=== PATIENT | female | born 1965 | race Hispanic/Latino ===

== ENCOUNTER 2021-11-22 09:06 | Observation (INO) | payer OTHER ==
[2021-11-17 11:15] LABS: CREATININE 0.7 mg/dL (0.5-1.5); POTASSIUM 3.8 mmol/L (3.5-5.1)
[2021-11-17 11:17] LABS: BASOPHILS % (AUTO) 0.6 % (0.0-5.0); EOSINOPHILS % (AUTO) 2.9 % (0.0-8.0); HEMATOCRIT 41.1 % (36-48); LYMPHOCYTES % (AUTO) 33.7 % (21.0-51.0); MEAN CORPUSCULAR HEMOGLOBIN 29.6 pg (27.0-33.0); MEAN CORPUSCULAR HGB CONC 31.9 g/dL (32.0-36.0); MEAN CORPUSCULAR VOLUME 92.8 fL (79-99); MONOCYTES % (AUTO) 5.5 % (3.0-13.0); NEUTROPHILS % (AUTO) 57.1 % (40.0-77.0); PLATELET COUNT (AUTO) 215 K/uL (130-400); RED BLOOD CELL COUNT(AUTO) 4.43 MIL/uL (4.00-5.50); RED CELL DISTRIBUTION WIDTH 13.3 % (11.0-15.5); WHITE BLOOD COUNT (AUTO) 8.5 K/uL (4.8-10.8)
[2021-11-17 12:01] LABS: INR 0.93 (0.85-1.15); PROTHROMBIN TIME 9.7 SEC (9.6-11.6)
[2021-11-17 12:03] LABS: PARTIAL THROMBOPLASTIN TIME 25.5 SEC (26.3-35.5)
[2021-11-21 10:14] VITALS: BP 178/94
[~2021-11-22] VITALS: Ht 154.9 cm; Wt 87.2 kg
[2021-11-22] VITALS (24 sets, daily range): BP systolic 110–138; BP diastolic 58–76
[2021-11-22] MEDS: CEFAZOLIN SODIUM 2 GM VIAL IV SCH ×2 (05:00→14:15)
[~2021-11-22 09:06] MED LIST: METF-444 PO; ROPIVICAINE 250MG+KETOROLAC 15MG+EPINEPHRINE 0.3+CLONIDINE 80 IV PRN
[2021-11-22] MEDS ORDERED: 0.9%NACL 1000ML 1,000 ML IV ONE (10:18)
[2021-11-22] MEDS ORDERED: POTASSIUM CHLORIDE 20MEQ/100ML 100 ML IV PRN (12:30)
[2021-11-22] MEDS ORDERED: POTASSIUM CHLORIDE 10% ELIXIR 20 MEQ/15 ML UDCUP PO PRN (12:30)
[2021-11-22] MEDS ORDERED: HYDROCODONE/ACETAMINOPHEN 5/325 MG TAB PO PRN (12:30)
[2021-11-22] MEDS: ACETAMINOPHEN 500 MG TABLET PO SCH ×2 (12:30→22:50)
[2021-11-22] MEDS ORDERED: LIDOCAINE HCL-MPF 1% 2ML VIAL IV PRN (12:30)
[2021-11-22] MEDS ORDERED: TRANEXAMIC ACID 1000MG/10ML ONE (13:02)
[2021-11-22] MEDS ORDERED: SUCCINYLCHOLINE CHLORIDE 20 MG/ML 10 ML VIAL ONE (13:45)
[2021-11-22] MEDS ORDERED: SUCCINYLCHOLINE 200MG/10ML SYR ONE (13:45)
[2021-11-22] MEDS ORDERED: LIDOCAINE PF 100MG/5ML (2%) SYRINGE 5ML ONE (13:45)
[2021-11-22] MEDS ORDERED: PROPOFOL 10 MG/ML 20ML VIAL IV ONE (13:46)
[2021-11-22] MEDS ORDERED: ROCURONIUM 10MG/1ML SYR 10 MG/ML ML ONE (13:46)
[2021-11-22] MEDS ORDERED: ONDANSETRON 4MG INJ ONE (13:46)
[2021-11-22] MEDS ORDERED: NEOSTIGMINE 5MG/5ML SYR IV ONE (13:46)
[2021-11-22] MEDS ORDERED: GLYCOPYRROLATE 1 MG/5 ML SYRINGE ONE (13:46)
[2021-11-22] MEDS ORDERED: MIDAZOLAM HCL 1 MG/ML 2ML VIAL ONE (13:46)
[2021-11-22] MEDS ORDERED: DEXAMETHASONE SOD PHOSPHATE 10MG/ML 1ML VIAL ONE (13:46)
[2021-11-22] MEDS ORDERED: FENTANYL CITRATE PF 50 MCG/1 ML 2ML VIAL ONE (13:47)
[2021-11-22] MEDS ORDERED: CEFAZOLIN SODIUM 1 GM VIAL ONE (13:53)
[2021-11-22] MEDS: INSULIN HUMULIN R 100 UNIT/ML 3ML SQ SCH ×2 (16:30→22:57)
[2021-11-22] MEDS ORDERED: MEPERIDINE-PF 25 MG/ML SYG ONE ×2 (16:55→17:21)
[2021-11-22] MEDS ORDERED: KETOROLAC 30MG VIAL (30MG/ML) ONE (16:55)
[2021-11-22] MEDS: METFORMIN HCL 500 MG TABLET PO SCH (17:00)
[2021-11-22] MEDS: ONDANSETRON 4MG INJ IVP PRN (17:02)
[2021-11-22] MEDS ORDERED: CEFAZOLIN SODIUM 1 GM VIAL IVP SCH (17:30)
[2021-11-22] MEDS: TRAMADOL HCL 50 MG TABLET PO SCH (18:28)
[2021-11-22] MEDS: 0.9%NACL 1000ML 1,000 ML IV SCH ×2 (18:28→22:30)
[2021-11-22] MEDS: ASPIRIN 81 MG EC TAB PO SCH (22:49)
[2021-11-22] MEDS: FAMOTIDINE 20MG TAB PO SCH (22:49)
[2021-11-22] MEDS: CEFAZOLIN SODIUM 1 GM VIAL IVP SCH (22:50)
[2021-11-22] MEDS: HYDROCODONE/ACETAMINOPHEN 10/325 MG TAB PO PRN (22:59)
[2021-11-23] MEDS: TRAMADOL HCL 50 MG TABLET PO SCH ×4 (00:57→17:28)
[2021-11-23 01:10] VITALS: BP 101/58
[2021-11-23 03:33] LABS: HEMATOCRIT 34.3 % (36-48); MEAN CORPUSCULAR HEMOGLOBIN 29.5 pg (27.0-33.0); MEAN CORPUSCULAR HGB CONC 31.8 g/dL (32.0-36.0); MEAN CORPUSCULAR VOLUME 92.7 fL (79-99); RED BLOOD CELL COUNT(AUTO) 3.7 MIL/uL (4.00-5.50); RED CELL DISTRIBUTION WIDTH 13.3 % (11.0-15.5)
[2021-11-23 03:43] LABS: CREATININE 0.7 mg/dL (0.5-1.5); POTASSIUM 3.5 mmol/L (3.5-5.1)
[2021-11-23 04:23] VITALS: BP 99/52
[2021-11-23] MEDS: CEFAZOLIN SODIUM 2 GM VIAL IV SCH ×2 (05:00→21:06)
[2021-11-23] MEDS: CEFAZOLIN SODIUM 1 GM VIAL IVP SCH (05:16)
[2021-11-23] MEDS: ACETAMINOPHEN 500 MG TABLET PO SCH ×3 (05:17→21:32)
[2021-11-23] MEDS: INSULIN HUMULIN R 100 UNIT/ML 3ML SQ SCH ×4 (07:30→21:00)
[2021-11-23 08:00] VITALS: BP 101/53
[2021-11-23] MEDS: 0.9%NACL 1000ML 1,000 ML IV SCH (08:30)
[2021-11-23] MEDS: POLYETHYLENE GLYCOL 3350 17 GM POWD.PACK PO SCH (08:46)
[2021-11-23] MEDS: METFORMIN HCL 500 MG TABLET PO SCH ×2 (08:48→17:28)
[2021-11-23] MEDS: ASPIRIN 81 MG EC TAB PO SCH ×2 (08:48→21:31)
[2021-11-23] MEDS: FAMOTIDINE 20MG TAB PO SCH ×2 (08:48→21:31)
[2021-11-23] MEDS: HYDROCODONE/ACETAMINOPHEN 10/325 MG TAB PO PRN (11:56)
[2021-11-23 12:00] VITALS: BP 121/63
[2021-11-23] MEDS: MORPHINE 4 MG SYG IVP PRN (13:20)
[2021-11-23] MEDS: KCL 20 MEQ ERTAB PO PRN ×2 (14:51→17:27)
[2021-11-23] MEDS: KETOROLAC 15MG/ML VIAL (15MG/ML) IV PRN ×2 (15:20→21:31)
[2021-11-23 16:30] VITALS: BP 109/58
[2021-11-23 22:34] VITALS: BP 121/67
[2021-11-24] MEDS: TRAMADOL HCL 50 MG TABLET PO SCH ×4 (00:13→16:54)
[2021-11-24 00:21] VITALS: BP 107/54
[2021-11-24] MEDS: KETOROLAC 15MG/ML VIAL (15MG/ML) IV PRN (04:09)
[2021-11-24] MEDS: ACETAMINOPHEN 500 MG TABLET PO SCH ×2 (04:09→12:06)
[2021-11-24 04:12] VITALS: BP 111/60
[2021-11-24 07:30] VITALS: BP 124/60
[2021-11-24] MEDS: INSULIN HUMULIN R 100 UNIT/ML 3ML SQ SCH ×3 (07:30→16:30)
[2021-11-24] MEDS: METFORMIN HCL 500 MG TABLET PO SCH ×2 (07:46→16:54)
[2021-11-24] MEDS: ASPIRIN 81 MG EC TAB PO SCH (07:46)
[2021-11-24] MEDS: HYDROCODONE/ACETAMINOPHEN 10/325 MG TAB PO PRN (07:46)
[2021-11-24] MEDS: FAMOTIDINE 20MG TAB PO SCH (07:47)
[2021-11-24] MEDS: POLYETHYLENE GLYCOL 3350 17 GM POWD.PACK PO SCH (07:47)
[2021-11-24] MEDS: MORPHINE 4 MG SYG IVP PRN ×2 (09:01→14:03)
[2021-11-24 11:00] VITALS: BP 117/60
[2021-11-24 16:00] VITALS: BP 122/68
[2021-11-24 17:06] VITALS: BP 122/68
[2021-11-24] MEDS: ONDANSETRON 4MG INJ IVP PRN (17:38)
[2021-11-25] MEDS ORDERED: BISACODYL 10 MG SUPP.RECT RC PRN (12:30)
== END 2021-11-24 20:50 | disposition home or self-care (01) ==
LOC: DAH 09:06 → DAHIP 09:07 → DAH 09:07 → 4AH 18:21
PROVIDERS: ADMIT Orthopaedic Surgery; ATTEND Orthopaedic Surgery
DX: M17.11 Unilateral primary osteoarthritis, right knee (principal); Z20.822 Contact with and (suspected) exposure to COVID-19; M79.604 Pain in right leg; E11.9 Type 2 diabetes mellitus without complications; Z79.899 Other long term (current) drug therapy
CPT/HCPCS: 0055T; 27447; 36415; 64447; 76942; 80048; 82948; 85025; 85027; 85610; 85730; 87635; 87641; 93971; 96372; 96374; 96375; 96376; 97039; C9803; G0378; J0171; J0330; J0690; J0735; J1100; J1815; J1885; J2001; J2175; J2250; J2270; J2405; J2704; J2710; J2795; J3010; J3490; J7030

== ENCOUNTER → 2021-12-09 | Outpatient (CLI) | payer OTHER ==
[~2021-12-09] MED LIST changes: -ROPIVICAINE 250MG+KETOROLAC 15MG+EPINEPHRINE 0.3+CLONIDINE 80 IV PRN
== END | disposition home or self-care (01) ==
LOC: RAH 11:15
PROVIDERS: ATTEND Internal Medicine
DX: T84.84XA Pain due to internal orthopedic prosthetic devices, implants and grafts, initial encounter (principal); M77.31 Calcaneal spur, right foot; X58.XXXA Exposure to other specified factors, initial encounter; Y93.89 Activity, other specified; Y92.89 Other specified places as the place of occurrence of the external cause; Y99.8 Other external cause status
CPT/HCPCS: 73552; 73560; 73590; 73600; 73620

== ENCOUNTER 2021-12-21 14:55 | Emergency (ER) | payer OTHER ==
[~2021-12-21] VITALS: Ht 152.4 cm; Wt 84.4 kg
[2021-12-21 16:14] LABS: BASOPHILS % (AUTO) 0.3 % (0.0-5.0); EOSINOPHILS % (AUTO) 3.8 % (0.0-8.0); LYMPHOCYTES % (AUTO) 28.3 % (21.0-51.0); MEAN CORPUSCULAR HEMOGLOBIN 29.8 pg (27.0-33.0); MEAN CORPUSCULAR HGB CONC 31.8 g/dL (32.0-36.0); MEAN CORPUSCULAR VOLUME 93.8 fL (79-99); MONOCYTES % (AUTO) 5.4 % (3.0-13.0); NEUTROPHILS % (AUTO) 61.9 % (40.0-77.0); PLATELET COUNT (AUTO) 284 K/uL (130-400); RED BLOOD CELL COUNT(AUTO) 4.16 MIL/uL (4.00-5.50); RED CELL DISTRIBUTION WIDTH 13.4 % (11.0-15.5); WHITE BLOOD COUNT (AUTO) 11.4 K/uL (4.8-10.8)
[2021-12-21 16:24] LABS: CREATININE 0.8 mg/dL (0.5-1.5); POTASSIUM 3.3 mmol/L (3.5-5.1)
[2021-12-21] MEDS ORDERED: POTASSIUM BICARB/CIT AC 25 MEQ TABLET.EFF PO STA (16:29)
[2021-12-21 16:30] LABS: ALBUMIN 3.7 g/dL (3.5-5.0)
[2021-12-21] MEDS ORDERED: NAPR375T6 PO (17:11)
[2021-12-21 17:27] VITALS: BP 132/74
== END 2021-12-21 17:29 | disposition home or self-care (01) ==
LOC: EDH 14:55
DX: S86.911A Strain of unspecified muscle(s) and tendon(s) at lower leg level, right leg, initial encounter (principal); E11.9 Type 2 diabetes mellitus without complications; Z79.84 Long term (current) use of oral hypoglycemic drugs; Z96.651 Presence of right artificial knee joint; X58.XXXA Exposure to other specified factors, initial encounter; Y93.89 Activity, other specified; Y92.89 Other specified places as the place of occurrence of the external cause; Y99.8 Other external cause status
CPT/HCPCS: 36415; 73562; 80053; 85025; 93971

== ENCOUNTER → 2022-01-10 | Outpatient (CLI) | payer OTHER ==
[~2022-01-10] MED LIST changes: +NAPR375T6 PO
== END | disposition home or self-care (01) ==
LOC: RAH 09:11
PROVIDERS: ATTEND Internal Medicine
DX: I10 Essential (primary) hypertension (principal)
CPT/HCPCS: 71046

== ENCOUNTER 2022-09-13 21:36 | Emergency (ER) | payer OTHER ==
[~2022-09-13] VITALS: Ht 154.9 cm; Wt 92.5 kg
[2022-09-14 00:02] LABS: BASOPHILS % (AUTO) 0.3 % (0.0-5.0); EOSINOPHILS % (AUTO) 2.9 % (0.0-8.0); HEMATOCRIT 40.4 % (36-48); LYMPHOCYTES % (AUTO) 33.1 % (21.0-51.0); MEAN CORPUSCULAR HEMOGLOBIN 29.7 pg (27.0-33.0); MEAN CORPUSCULAR HGB CONC 31.4 g/dL (32.0-36.0); MEAN CORPUSCULAR VOLUME 94.4 fL (79-99); MONOCYTES % (AUTO) 6.3 % (3.0-13.0); PLATELET COUNT (AUTO) 234 K/uL (130-400); RED BLOOD CELL COUNT(AUTO) 4.28 MIL/uL (4.00-5.50); WHITE BLOOD COUNT (AUTO) 12.9 K/uL (4.8-10.8)
[2022-09-14 00:36] LABS: ALBUMIN 4.1 g/dL (3.5-5.0); CREATININE 0.9 mg/dL (0.5-1.5); POTASSIUM 3.7 mmol/L (3.5-5.1); TOTAL PROTEIN, SERUM 8.1 g/dL (6.0-8.3)
[2022-09-14] MEDS ORDERED: ONDANSETRON 4MG INJ ONE (01:13)
[2022-09-14] MEDS ORDERED: KETOROLAC 30MG VIAL (30MG/ML) ONE (01:13)
[2022-09-14] MEDS ORDERED: ONDANSETRON 4MG INJ IVP ONE (01:30)
[2022-09-14] MEDS ORDERED: KETOROLAC 30MG VIAL (30MG/ML) IVP ONE (01:30)
[2022-09-14] MEDS ORDERED: 0.9%NACL 1000ML 1,000 ML IV ONE (01:30)
[2022-09-14 01:33] LABS: APPEARANCE,URINE CLEAR (CLEAR); BILIRUBIN,URINE NEGATIVE (NEGATIVE); COLOR,URINE COLORLESS (YELLOW); GLUCOSE, URINE (UA) NEGATIVE (NEGATIVE); KETONES,URINE NEGATIVE (NEGATIVE); LEUKOCYTE ESTERASE ,URINE NEGATIVE Leu/uL (NEGATIVE); NITRATE,URINE NEGATIVE (NEGATIVE); OCCULT BLOOD,URINE NEGATIVE (NEGATIVE); PROTEIN,URINE NEGATIVE (NEGATIVE); UROBILINOGEN,URINE 0.2 mg/dL (0.2-1.0)
[2022-09-14 04:17] VITALS: BP 148/72
[2022-09-14] MEDS ORDERED: IBUP-1493 PO (04:20)
[2022-09-14] MEDS ORDERED: DICYCLOMINE 20MG (10MG/ML) AMP IM ONE ×2 (04:26→04:30)
== END 2022-09-14 04:51 | disposition home or self-care (01) ==
LOC: EDH 21:36
DX: K43.9 Ventral hernia without obstruction or gangrene (principal); E11.9 Type 2 diabetes mellitus without complications; E78.00 Pure hypercholesterolemia, unspecified; Z79.1 Long term (current) use of non-steroidal anti-inflammatories (NSAID); Z79.84 Long term (current) use of oral hypoglycemic drugs; Z90.49 Acquired absence of other specified parts of digestive tract; Z79.899 Other long term (current) drug therapy; Z90.710 Acquired absence of both cervix and uterus
CPT/HCPCS: 99285; 74176; 84484; 80053; 83690; 85025; 81003; 36415; 93005; 96374; 96361; 96375; 96372; J7030; J2405 ×2; J1885 ×2; J0500

== ENCOUNTER 2023-02-04 21:15 | Emergency (ER) | payer OTHER ==
[~2023-02-04] VITALS: Ht 154.9 cm; Wt 83.0 kg
[~2023-02-04 21:15] MED LIST changes: +AMIT50TA3 PO; +DULO30CA2 PO; +ESCI20TA38 PO; +IBUP-1493 PO
[2023-02-04 21:55] LABS: BASOPHILS # (AUTO) 0.03 K/uL (0.00-0.20); BASOPHILS % (AUTO) 0.3 % (0.0-5.0); EOSINOPHILS # (AUTO) 0.47 K/uL (0.00-0.70); EOSINOPHILS % (AUTO) 5.2 % (0.0-8.0); HEMATOCRIT 37.9 % (36-48); IMMATURE GRANULOCYTE ABSOLUTE 0.04 K/uL (0-1); LYMPHOCYTES # (AUTO) 3.2 K/uL (1.0-4.8); LYMPHOCYTES % (AUTO) 35.4 % (21.0-51.0); MEAN CORPUSCULAR HEMOGLOBIN 30.2 pg (27.0-33.0); MEAN CORPUSCULAR HGB CONC 32.7 g/dL (32.0-36.0); MEAN CORPUSCULAR VOLUME 92.2 fL (79-99); MONOCYTES # (AUTO) 0.7 K/uL (0.1-1.0); MONOCYTES % (AUTO) 7.5 % (3.0-13.0); NEUTROPHILS # (AUTO) 4.6 K/uL (1.8-7.7); NEUTROPHILS % (AUTO) 51.2 % (40.0-77.0); PLATELET COUNT (AUTO) 207 K/uL (130-400); RED BLOOD CELL COUNT(AUTO) 4.11 MIL/uL (4.00-5.50); RED CELL DISTRIBUTION WIDTH 13.2 % (11.0-15.5)
[2023-02-04 22:04] LABS: CREATININE 0.8 mg/dL (0.5-1.5); POTASSIUM 3.7 mmol/L (3.5-5.1)
[2023-02-04 22:08] LABS: ALBUMIN 3.7 g/dL (3.5-5.0); BILIRUBIN,TOTAL 0.3 mg/dL (0.2-1.0); TOTAL PROTEIN, SERUM 7.3 g/dL (6.0-8.3)
[2023-02-04 22:51] LABS: APPEARANCE,URINE CLEAR (CLEAR); BILIRUBIN,URINE NEGATIVE (NEGATIVE); COLOR,URINE LIGHT-YELLOW (YELLOW); GLUCOSE, URINE (UA) NEGATIVE (NEGATIVE); KETONES,URINE NEGATIVE (NEGATIVE); LEUKOCYTE ESTERASE ,URINE NEGATIVE Leu/uL (NEGATIVE); NITRATE,URINE NEGATIVE (NEGATIVE); OCCULT BLOOD,URINE NEGATIVE (NEGATIVE); PROTEIN,URINE NEGATIVE (NEGATIVE); UROBILINOGEN,URINE 0.2 mg/dL (0.2-1.0)
[2023-02-04 22:52] LABS: ADD UA MICROSCOPIC NO
[2023-02-05] MEDS ORDERED: 0.9%NACL 1000ML 1,000 ML IV ONE (01:30)
[2023-02-05] MEDS ORDERED: ONDANSETRON 4MG INJ IVP ONE (01:30)
[2023-02-05] MEDS ORDERED: KETOROLAC 30MG VIAL (30MG/ML) IVP ONE (01:30)
[2023-02-05] MEDS ORDERED: IOHEXOL 350 MG/ML 100ML INFUS..BTL IV ONE (03:09)
[2023-02-05 05:11] VITALS: BP 114/44; PULSE 62; RESP 16; O2SAT 99
[2023-02-05] MEDS ORDERED: FENTANYL CITRATE PF 50 MCG/1 ML 2ML VIAL IVP ONE (05:30)
== END 2023-02-05 05:40 | disposition home or self-care (01) ==
LOC: EDH 21:15
DX: R10.9 Unspecified abdominal pain (principal); M25.561 Pain in right knee; E11.9 Type 2 diabetes mellitus without complications; Z79.84 Long term (current) use of oral hypoglycemic drugs; Z79.899 Other long term (current) drug therapy; Z90.49 Acquired absence of other specified parts of digestive tract; Z98.890 Other specified postprocedural states
CPT/HCPCS: 99285; 80053; 83690; 85025; 81003; 36415; 74177; 96374; 96375; 96361; J3010; J7030; J2405 ×2; J1885 ×2; Q9967

== ENCOUNTER → 2023-02-08 | Outpatient (CLI) | payer OTHER | END | disposition home or self-care (01) | LOC: RAH 07:39 | PROVIDERS: ATTEND Internal Medicine Gastroenterology | DX: R16.0 Hepatomegaly, not elsewhere classified (principal); R93.3 Abnormal findings on diagnostic imaging of other parts of digestive tract; R10.11 Right upper quadrant pain; D35.02 Benign neoplasm of left adrenal gland | CPT/HCPCS: 74181; S8037 ==

== ENCOUNTER → 2023-04-24 | Outpatient (CLI) | payer OTHER | END | disposition home or self-care (01) | LOC: RAH 08:25 | PROVIDERS: ATTEND Internal Medicine Gastroenterology | DX: R13.10 Dysphagia, unspecified (principal) | CPT/HCPCS: 74240 ==

== ENCOUNTER → 2024-09-19 | Outpatient (CLI) | payer OTHER ==
[~2024-09-19] MED LIST changes: +IOHEXOL-350 75 ML VIAL IV ONE; +NAPR-1505 PO; -NAPR375T6 PO
--- NOTE | 2024-09-19 13:17 | HMCIMG ---
Exam Type: CT LOW EXT W/O CONTRAST Clinical Information: Broken internal right knee prosthesis, initial encounter Comparison: None Findings: Routine views of the knee are without evidence of fracture, dislocation, arthritic, or inflammatory change. There is status post knee replacement with adequate visualization and alignment of bony and hardware elements. No complications are seen. The prosthesis appears intact without evidence of fracture or dislodgment. There are vascular calcifications. The joint space is well maintained and there is no effusion. IMPRESSION: Status post knee replacement. The prosthesis appears intact without evidence of fracture or dislodgment.
--- NOTE | 2024-09-21 10:49 | HMCIMG ---
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 COMPARISON: None RADIOPHARMACEUTICAL: Tc99m MDP DOSE: 24.0 millicuries given IV. TECHNIQUE: Blood flow, blood pool and three-hour postinjection images of right knee were submitted for interpretation. FINDINGS: No abnormal blood flow or blood pooling was detected. On the delayed postinjection images, minimal degenerative right knee periprosthetic increased radiotracer activity identified. Focal increased radiotracer activity along the medial left midfoot also be degenerative. Minimal degenerative increased radiotracer activity within both shoulders and ankle joints. Otherwise, no abnormal increased or decreased radiotracer uptake was seen. IMPRESSION: Minimal degenerative right knee periprosthetic increased radiotracer activity. Focal increased radiotracer activity along the medial left midfoot also be degenerative. Left ankle/foot radiographic imaging is advised for complete evaluation.
== END | disposition home or self-care (01) ==
LOC: RAH 10:36
PROVIDERS: ATTEND Orthopaedic Surgery
DX: M25.861 Other specified joint disorders, right knee (principal); T84.012A Broken internal right knee prosthesis, initial encounter; Z98.890 Other specified postprocedural states; Y79.2 Prosthetic and other implants, materials and accessory orthopedic devices associated with adverse incidents
CPT/HCPCS: 78315; 73700; A9503; Q9967

== ENCOUNTER 2025-02-28 17:53 | Emergency (ER) | payer OTHER ==
[~2025-02-28] VITALS: Ht 154.9 cm; Wt 83.5 kg
[~2025-02-28 17:53] MED LIST changes: +AMIT50TA14 PO; -AMIT50TA3 PO; -IOHEXOL-350 75 ML VIAL IV ONE
[2025-02-28 18:29] LABS: IMMATURE GRANULOCYTE ABSOLUTE 0.02 K/uL (0-1); NUCLEATED RED BLOOD CELLS 0.0 % (0.0-0.19); PLATELET COUNT (AUTO) 227 K/uL (130-400); RED BLOOD CELL COUNT(AUTO) 4.28 MIL/uL (4.00-5.50); RED CELL DISTRIBUTION WIDTH 13.2 % (11.0-15.5); WHITE BLOOD COUNT (AUTO) 10.6 K/uL (4.8-10.8)
[2025-02-28 18:37] LABS: CREATININE 1.0 mg/dL (0.5-1.0); GLOMERULAR FILTR. RATE CALC 65.0 mL/min (>90); GLUCOSE,RANDOM 130.0 mg/dL (70-105); SODIUM SERUM 144.0 mmol/L (136-145); UREA NITROGEN, BLOOD 21.0 mg/dL (7-18)
[2025-02-28 18:42] LABS: ASPARTATE AMINOTRANSFERASE 16.0 U/L (10-37); TOTAL PROTEIN, SERUM 7.0 g/dL (6.0-8.3)
[2025-02-28 18:59] LABS: APPEARANCE,URINE TURBID (CLEAR); GLUCOSE, URINE (UA) NEGATIVE (NEGATIVE); LEUKOCYTE ESTERASE ,URINE 500 Leu/uL (NEGATIVE); NITRATE,URINE NEGATIVE (NEGATIVE); OCCULT BLOOD,URINE SMALL (NEGATIVE)
[2025-02-28 19:11] LABS: ADD UA MICROSCOPIC YES
[2025-02-28 19:14] LABS: HYALINE CASTS, URINE 0-1 /LPF (0-1 /LPF); NON-SQUAMOUS EPITHELIAL CELL 2 /HPF (0-2); OTHER CASTS, URINE 16 /LPF (None Seen); SQUAMOUS EPITHELIAL CELL,UR FEW /HPF (0-2); UNCLASSIFIED CRYSTAL 5 /HPF (None Seen); WBC CLUMP RARE /HPF (0-1)
[2025-02-28] MEDS ORDERED: CEPH500B PO (19:32)
--- NOTE | 2025-02-28 19:33 | ERN ---
ED Note History of Present Illness Stated Complaint: RASH BILATERAL ARMS, URINARY RETENTION, DIZZINESS Chief Complaint: Multiple Complaints Time Seen by MD: 18:02 Time Seen by Midlevel: 18:03 Dictation: 60-year-old female presents to the emergency department due to reported having generalized body aches, chills, urinary symptoms and concern over having had being treated for a possibly sexually transmitted infection 6 days ago. She states that she was placed on doxycycline for which she felt her initial complaints were gone. Those complaints initially without of having a foul smell to the vaginal area. Currently, there is no report of having any abdominal pain, nausea, vomiting, vaginal eruptions or flank pain. Upon initial evaluation, the patient presents in no acute distress. Allergies: Coded Allergies: No Known Drug Allergies (Verified Allergy, Unknown, 11/21/21) Emergency Care UTILIZATION REVIEW NURSE: None Home Meds Active Scripts Ibuprofen (Motrin/Advil) 800 Mg Tab, 800 MG PO TID, #30 TAB Prov:LUDA FIELDS MD 09/14/22 Naproxen (Naproxen) 375 Mg Tablet.dr, 375 MG PO BID for 10 Days, #20 TAB Prov:DEVON MOODY MD 12/21/21 Reported Medications Duloxetine HCl (Cymbalta) 30 Mg Capsule.dr, 40 MG PO DAILY, CAP 01/06/23 Escitalopram Oxalate (Escitalopram Oxalate) 20 Mg Tablet, 20 MG PO 1200, TAB 01/06/23 Amitriptyline HCl (Amitriptyline HCl) 50 Mg Tablet, 50 MG PO HS, TAB 01/06/23 Metformin HCl (Metformin HCl) 500 Mg Tablet, 500 MG PO BID, TAB 11/21/21 Past Medical History Past Medical History: Diabetes-Type II, High Cholesterol, Other Additional Past Medical Hx: HX OF BOWEL OBSTRUCTION Surgical History: Cholecystectomy, Other Surgical History Other: UMBILICAL HERNIA REPAIR, ABDOMINAL MESH, BOWEL OBSTRUCTION,LEFT KNEE Social History: Negative, Lives with family History: Not Applicable RN Note Reviewed/Agreed w/PFSH: Yes Review of System Dictation : Urinary symptoms Initial Vital Sign VS Vital Signs Date Time Temp Pulse Resp B/P (MAP) Pulse Ox O2 Delivery O2 Flow Rate FiO2 02/28/25 17:54 98.8 78 16 121/76 98 Room Air* 0 21 Physical Exam Dictation General: awake, alert, NAD Head/Face: Normocephalic, atraumatic Eyes: PERRL, EOMI ENT: Oral mucosa moist Neck: Trachea midline, supple Cardiovascular: RRR, no edema Respiratory: Symmetrical, non-labored Abdomen: Soft, non-tender, non-distended, no guarding. Skin: Warm, dry, good turgor, no rash MS/Extremity: Pulses equal, no cyanosis, neurovascular intact, FROM Neuro: COAx4, GCS 15, steady gait, Psych: Normal behavior, mood, and affect normal Results (Laboratory/Radiology) Laboratory/Radiology Laboratory Tests Test 02/28/25 18:23 02/28/25 18:48 White Blood Count 10.6 K/uL (4.8-10.8) Red Blood Count 4.28 MIL/uL (4.00-5.50) Hemoglobin 13.2 g/dL (12.0-16.0) Hematocrit 41.3 % (36-48) Mean Corpuscular Volume 96.5 fL (79-99) Mean Corpuscular Hemoglobin 30.8 pg (27.0-33.0) Mean Corpuscular Hemoglobin Concent 32.0 g/dL (32.0-36.0) Red Cell Distribution Width 13.2 % (11.0-15.5) Platelet Count 227 K/uL (130-400) Mean Platelet Volume 10.8 fL (7.5-10.5) H Immature Granulocyte % (Auto) 0.2 % (0-1) Neutrophils (%) (Auto) 58.5 % (40.0-77.0) Lymphocytes (%) (Auto) 28.6 % (21.0-51.0) Monocytes (%) (Auto) 7.0 % (3.0-13.0) Eosinophils (%) (Auto) 5.1 % (0.0-8.0) Basophils (%) (Auto) 0.6 % (0.0-5.0) Neutrophils # (Auto) 6.2 K/uL (1.8-7.7) Lymphocytes # (Auto) 3.0 K/uL (1.0-4.8) Monocytes # (Auto) 0.7 K/uL (0.1-1.0) Eosinophils # (Auto) 0.54 K/uL (0.00-0.70) Basophils # (Auto) 0.06 K/uL (0.00-0.20) Absolute Immature Granulocyte (auto 0.02 K/uL (0-1) Nucleated Red Blood Cells 0.0 % (0.0-0.19) Sodium Level 144 mmol/L (136-145) Potassium Level 3.6 mmol/L (3.5-5.1) Chloride Level 107 mmol/L (101-111) Carbon Dioxide Level 27 mmol/L (21-32) Blood Urea Nitrogen 21 mg/dL (7-18) H Creatinine 1.0 mg/dL (0.5-1.0) Glomerular Filtration Rate Calc 65 mL/min (>90) Random Glucose 130 mg/dL (70-105) H Total Calcium 8.4 mg/dL (8.5-10.1) L Total Bilirubin 0.3 mg/dL (0.2-1.0) Aspartate Amino Transf (AST/SGOT) 16 U/L (10-37) Alanine Aminotransferase (ALT/SGPT) 16 U/L (12-78) Alkaline Phosphatase 108 U/L (50-136) Total Protein 7.0 g/dL (6.0-8.3) Albumin 3.5 g/dL (3.5-5.0) Urine Color YELLOW (YELLOW) Urine Appearance TURBID (CLEAR) Urine pH 5.5 (5.0-8.0) Urine Specific [place] 1.030 (1.001-1.031) Urine Protein 50 mg/dL (NEGATIVE) H Urine Glucose (UA) NEGATIVE mg/dL (NEGATIVE) Urine Ketones NEGATIVE mg/dL (NEGATIVE) Urine Occult Blood SMALL (NEGATIVE) H Urine Nitrate NEGATIVE (NEGATIVE) Urine Bilirubin NEGATIVE mg/dL (NEGATIVE) Urine Urobilinogen 0.2 mg/dL (0.2-1.0) Urine Leukocyte Esterase 500 [place]/uL (NEGATIVE) H Urine RBC 26-50 /HPF (0-1) H Urine WBC 51-100 /HPF (0-1) H Urine WBC Clumps (Auto) RARE /HPF (0-1) Urine Squamous Epithelial Cells FEW /HPF (0-2) Urine Non-Squamous Epithelial Cells 2 /HPF (0-2) Urine Other Crystals (Auto) 5 /HPF (None Seen) Urine Bacteria None /HPF (None Seen) Urine Hyaline Casts 0-1 /LPF (0-1 /LPF) Urine Other Casts 16 /LPF (None Seen) Labs Reviewed?: Yes ED Course ED Course Orders Procedure Category Date Status Time Cbc With Differential LAB 02/28/25 Complete 18:12 Comprehensive LAB 02/28/25 Complete Metabolic Panel 18:12 Urinalysis Profile LAB 02/28/25 Complete 18:12 Culture Urine ROBERTO 02/28/25 In Process 19:11 Vital Signs Date Time Temp Pulse Resp B/P (MAP) Pulse Ox O2 Delivery O2 Flow Rate FiO2 02/28/25 17:54 98.8 78 16 121/76 98 Room Air 02/28/25 17:54 98.8 78 16 121/76 98 Room Air* 0 21 Medical Decision Making MDM MDM: Differential diagnosis: Acute UTI, acute cystitis, STI. Rationale: Tests considered and ordered secondary to shared decision making include: Previous outside records reviewed: Old ER visits. Risk of complication and/or morbidity or mortality of patient management: None Medications-Per medication reconciliation Need for hospitalization: Patient does not meet criteria for hospitalization. Need for emergency major/minor surgery: No There are no social concerns with this patient. Prescription drug management Prescriptions will include symptomatic care Patient's prior external medical records from other ER visits were reviewed by oliver barry as indicated. Prior testing and results from previous visits were reviewed. Prior tests were taken into account with medical decision making and resource utilization, independent historian/historians were used to obtain complete medical history. I independently interpreted the test that were performed, results were reviewed by me and considered findings on radiology if ordered. Medical management and examination interpretation discussions were had by me with other qualified healthcare professionals as indicated for the patient's care. DX & DISP Disposition: Discharge Departure Impression: Primary Impression: Acute UTI Condition: Stable Scripts Cephalexin Monohydrate (Keflex) 500 Mg Cap 500 MG PO BID for 5 Days, #10 CAP Prov: MATTHEW CALLAHAN 02/28/25 Referrals: JUVENAL MALLORY MD (PCP) Time of Disposition: 19:33 MATTHEW CALLAHAN Feb 28, 2025 19:33
[2025-02-28 19:35] VITALS: BP 118/70; PULSE 78; RESP 16; TEMP 98.4; O2SAT 98
== END 2025-02-28 19:53 | disposition home or self-care (01) ==
LOC: EDH 17:53
DX: N39.0 Urinary tract infection, site not specified (principal); E11.9 Type 2 diabetes mellitus without complications; E78.00 Pure hypercholesterolemia, unspecified; Z79.1 Long term (current) use of non-steroidal anti-inflammatories (NSAID); Z79.84 Long term (current) use of oral hypoglycemic drugs; Z79.899 Other long term (current) drug therapy; Z90.49 Acquired absence of other specified parts of digestive tract
CPT/HCPCS: 36415; 80053; 81001; 85025; 87086; 99283